=== PATIENT | male | born 1995 | race Native Hawaiian/Other Pacific Islander ===

== ENCOUNTER 2020-04-13 16:15 | Emergency (ER) | payer OTHER ==
[~2020-04-13] VITALS: Ht 170.2 cm; Wt 73.0 kg
[2020-04-13 17:29] LABS: POTASSIUM 4.4 mmol/L (3.6-5.2)
[2020-04-13 17:33] LABS: PLATELET COUNT 253 K/uL (142-355)
[2020-04-14 07:30] VITALS: BP 136/84; TEMP 98.6
== END 2020-04-14 12:24 | disposition still patient (30) ==
LOC: ED 16:23
PROVIDERS: Family Medicine
DX: S61.512A Laceration without foreign body of left wrist, initial encounter (principal); F32.89 Other specified depressive episodes; Z03.818 Encounter for observation for suspected exposure to other biological agents ruled out; X83.8XXA Intentional self-harm by other specified means, initial encounter; Y92.89 Other specified places as the place of occurrence of the external cause
CPT/HCPCS: 80053; 80307; 80320; 80329; 81000; 85027; 87635; 93005; 99285; U0003

== ENCOUNTER 2022-02-12 15:57 | Emergency (ER) | payer OTHER ==
[~2022-02-12] VITALS: Ht 170.2 cm; Wt 73.0 kg
[2022-02-12 15:58] VITALS: BP 139/81; TEMP 99.1
== END 2022-02-12 17:12 ==
LOC: ED 15:57
DX: S06.0X1A Concussion with loss of consciousness of 30 minutes or less, initial encounter (principal); S09.8XXA Other specified injuries of head, initial encounter; S93.492A Sprain of other ligament of left ankle, initial encounter; S93.491A Sprain of other ligament of right ankle, initial encounter; S83.8X1A Sprain of other specified parts of right knee, initial encounter; S00.81XA Abrasion of other part of head, initial encounter; S80.212A Abrasion, left knee, initial encounter; S80.211A Abrasion, right knee, initial encounter; V47.5XXA Car driver injured in collision with fixed or stationary object in traffic accident, initial encounter; Y92.89 Other specified places as the place of occurrence of the external cause
CPT/HCPCS: 99283